=== PATIENT | female | born 1960 | race Caucasian/White ===

== ENCOUNTER 2020-02-07 12:54 | Outpatient (CLI) | payer OTHER, SELFPAY ==
--- NOTE | ~2020-02-07 | CT_ITS ---
EXAMINATION: CT lung screening DATE: 02/07/2020 13:16 INDICATION: Personal history of tobacco dependence, prior smoker with 30 pack year history TECHNIQUE: Computed tomography (CT) of the chest was performed without intravenous contrast. The dose -length product (DLP) was 169.70 mGy-cm. Automated exposure control and iterative reconstruction tech nique were employed. COMPARISON: None FINDINGS: No suspicious pulmonary nodules are identified. There is mild dependent atelectasis. The jovita ngs are free of focal airspace opacity. There is no pleural effusion or pneumothorax. No pathological ly enlarged thoracic lymph nodes are identified. The heart size is normal. Bilateral breast implants are noted. The visualized osseous structures are unremarkable. IMPRESSION: 1. Lung-RADS category 1: Negative. Continue annual screening with noncontrast low-dose chest CT in 12 months. Reviewed, dictated and finalized at location A. IMPRESSION: 1. Lung-RADS category 1: Negative. Continue annual screening with noncontrast l ow-dose chest CT in 12 months.
== END 2020-02-07 12:55 | disposition home or self-care (01) ==
PROVIDERS: PCP Nurse Practitioner Family; Visit Provider Nurse Practitioner Family
DX: Z12.2 Encounter for screening for malignant neoplasm of respiratory organs (principal); Z87.891 Personal history of nicotine dependence
CPT/HCPCS: G0297

== ENCOUNTER 2020-09-03 11:39 | Emergency (ER) | payer OTHER, SELFPAY ==
--- NOTE | ~2020-09-03 | XR_ITS ---
EXAMINATION: XR knee LT 3V DATE: 09/03/2020 12:30 INDICATION: Left knee pain. TECHNIQUE: 3 views of left knee were obtained. COMPARISON: None. FINDINGS: Bone alignment is normal. No fracture. There is mild tricompartmental osteoarthritis. No kn ee joint effusion. IMPRESSION: 1. Mild left knee osteoarthritis. Reviewed, dictated and finalized at location A. GER OFFICE
--- NOTE | ~2020-09-03 | CT_ITS ---
EXAMINATION: CT brain wo con DATE: 09/03/2020 12:27 INDICATION: Head injury. TECHNIQUE: Computed tomography (CT) of the head was performed without intravenous contrast. The mA wa s adjusted according to patient size. Iterative reconstruction technique was employed. The dose-lengt h product was 605.33 mGy-cm. COMPARISON: None FINDINGS: There is no intracranial hemorrhage, acute infarction, or abnormal intracranial mass lesion . The ventricles are normal in size. The orbits are normal. There is mild mucosal thickening in the p aranasal sinuses. The mastoid air cells are normal. IMPRESSION: 1. Normal brain. Reviewed, dictated and finalized at location A. K OF COURT IMPRESSION: 1. Normal brain.
[2020-09-03 11:42] VITALS: BP 141/73; PULSE 74; RESP 18; TEMP 35.6; O2SAT 100
--- NOTE | 2020-09-03 12:19 | PC.NURSE ---
Pt off floor to radiology.
--- NOTE | 2020-09-03 12:25 | ED.GENADULT ---
HPI - General Adult General Chief complaint: Wound/Laceration Stated complaint: LAC on head Time Seen by Provider: 09/03/20 11:58 Source: patient and family Mode of arrival: ambulatory Limitations: no limitations History of Present Illness HPI narrative: Patient is a 60-year-old female who presents to emergency department after falling and striking her face at 11:00 last night when taking her dog outside patient denies loss of consciousness or syncope patient sustained laceration to the right forehead just above the brow patient is unsure as to tetanus status patient notes mild headache and numbness to the right side of the temporal parietal scalp patient denies anticoagulation use presents in no distress with her family. Patient has not taken anything for her symptoms. Patient notes she also has some mild discomfort to the left knee with small abrasion Related Data Home Medications Medication Instructions Recorded Confirmed budesonide-formoterol [Symbicort] INHALATION 09/03/20 estradiol mg 09/03/20 sertraline mg 09/03/20 Allergies Allergy/AdvReac Type Severity Reaction Status Date / Time No Known Allergies Verified 09/03/20 12:24 Review of Systems Review of Systems: All systems reviewed & are unremarkable except as noted in HPI and below PMFSH Family History Family History (Updated 11/05/17 @ 06:58 by DOCTOR UNKNOWN) Mother Asthma Family history of chronic obstructive pulmonary disease Family history of congestive heart failure Grandparent Asthma Acute myocardial infarction Father Family history of lung cancer Sibling Family history of lung cancer, Onset Age: 44 Social History Social History Smoking status: Former smoker Smoking end date: 08/10/10 Alcohol intake: current Exam Narrative: Exam Narrative: GENERAL: Well-appearing, well-nourished, and in no acute distress. HEAD: Normocephalic, 2-1/2 cm linear laceration just above the right brow EYES: PERRLA and EOMI. ENT: Nares clear, no rhinorrhea or epistaxis. Mucous membranes moist. NECK: Supple. No adenopathy or masses. CHEST: Clear to auscultation. No respiratory distress. No wheezes rales or rhonchi HEART: Regular rate and rhythm. No murmur heard. Normal peripheral pulses. EXTREMITIES: Normal range of motion. No edema. Mild tenderness and abrasion to the medial aspect of the anterior left knee. No cervical spine tenderness to palpation SKIN: Warm, dry, no rash. NEURO: No focal deficits. Alert and oriented x3. Cranial nerves II through XII grossly intact. Neurovascularly intact. Normal speech and gait PSYCH: Normal mood and affect. Course Course Emergency Course: Patient in the room aware of case findings treatment plan diagnosis had closure of the wound reviewed imaging with the patient will be discharged home with outpatient follow-up tetanus was updated hemodynamically stable ABCs intact vital signs intact Vital Signs Vital signs: Vital Signs Temperature 96.1 F L 09/03/20 11:42 Pulse Rate 74 09/03/20 11:42 Respiratory Rate 18 09/03/20 11:42 Blood Pressure 141/73 H 09/03/20 11:42 Pulse Oximetry 100 09/03/20 11:42 Temperature 96.1 F L 09/03/20 11:42 Pulse Rate 74 09/03/20 11:42 Respiratory Rate 18 09/03/20 11:42 Blood Pressure 141/73 H 09/03/20 11:42 Pulse Oximetry 100 09/03/20 11:42 Procedures Laceration Laceration 1: Date: 09/03/20 Time: 13:49 Site: face Side (If applicable): right Size (cm): 2.5 Description: linear Depth: simple, single layer Local Anesthetic: lidocaine 1% Pre-repair: wound explored, irrigated and irrigated extensively ====== Skin Level ====== Skin layer closed with: nylon Number of sutures: 6 Technique: simple, interrupted ====== Subcutaneous Layer ====== ====== Muscle Layer ======
[2020-09-03] MEDS: TETANUS,DIPHTHERIA,AC PERTUSSIS ADULT (0.5 ML) BOOSTRIX IM (12:45)
[2020-09-03] MEDS: LIDOCAINE, EPINEPHRINE, TETRACAINE VISCOUS SOLN 3 ML TOPICAL (12:46)
[2020-09-03 14:15] VITALS: PULSE 74; RESP 16; TEMP 36.7; O2SAT 9
== END 2020-09-03 14:16 | disposition home or self-care (01) ==
PROVIDERS: Emergency Provider Emergency Medicine
DX: S01.81XA Laceration without foreign body of other part of head, initial encounter (principal); S89.92XA Unspecified injury of left lower leg, initial encounter; S09.90XA Unspecified injury of head, initial encounter; Z23 Encounter for immunization; Z87.891 Personal history of nicotine dependence; M17.12 Unilateral primary osteoarthritis, left knee; W01.198A Fall on same level from slipping, tripping and stumbling with subsequent striking against other object, initial encounter
CPT/HCPCS: 12011; 70450; 73562; 90471; 90715; 99284

== ENCOUNTER → 2020-10-12 12:48 | Outpatient (CLI) | payer OTHER, SELFPAY ==
--- NOTE | ~2020-10-12 | MM_ITS ---
EXAMINATION: MM scrn tom implant BI w colten HISTORY: Screening mammogram TECHNIQUE: Craniocaudal and mediolateral oblique 3-D tomosynthesis images with implant displacement a nd synthetic 2-D images were generated. Craniocaudal and mediolateral oblique views of the breasts wi thout implant displacement were obtained using full field digital mammography. CAD analysis was submi tted and interpreted. COMPARISON: Comparison to multiple prior studies sequentially, with oldest reviewed study dated . BREAST PARENCHYMAL COMPOSITION: There are scattered areas of fibroglandular density. FINDINGS: There are bilateral subpectoral silicone implants. There is no evidence of suspicious mass, calcification, or architectural distortion to suggest malignancy in either breast. There has been no suspicious interval change. IMPRESSION: 1. No mammographic evidence of malignancy. 2. Recommend routine screening mammography in one year. BI-RADS Category 1: Negative Reviewed, dictated and finalized at location A. E TURNER
== END ==
PROVIDERS: PCP Family Medicine; Visit Provider Obstetrics & Gynecology
DX: Z12.31 Encounter for screening mammogram for malignant neoplasm of breast (principal)
CPT/HCPCS: 77063; 77067

== ENCOUNTER 2021-02-25 15:13 | Outpatient (CLI) | payer OTHER, SELFPAY ==
--- NOTE | ~2021-02-25 | CT_ITS ---
EXAMINATION: CT lung screening DATE: 02/25/2021 15:28 INDICATION: Personal history of nicotine dependence, prior smoker with 30 pack year history TECHNIQUE: Computed tomography (CT) of the chest was performed without intravenous contrast. The dose -length product (DLP) was 329.67 mGy-cm. Automated exposure control and iterative reconstruction tech [employer] were employed. COMPARISON: 02/07/2020 FINDINGS: There is mild dependent atelectasis. No suspicious pulmonary nodules are identified. No pat hologically enlarged thoracic lymph nodes are identified. The heart size is normal. There is no pleur al effusion or pneumothorax. Bilateral breast implants are noted. The liver is diffusely low in atten uation when compared with the spleen, consistent with hepatic steatosis. IMPRESSION: 1. Lung-RADS category 1: Negative. Continue annual screening with noncontrast low-dose chest CT in 12 months. Reviewed, dictated and finalized at location B. IMPRESSION: 1. Lung-RADS category 1: Negative. Continue annual screening with noncontrast l ow-dose chest CT in 12 months.
== END 2021-02-25 15:14 | disposition home or self-care (01) ==
LOC: ANHIMG 15:15
PROVIDERS: PCP Family Medicine; Visit Provider Nurse Practitioner Family
DX: Z87.891 Personal history of nicotine dependence (principal)
CPT/HCPCS: 71271

== ENCOUNTER → 2021-10-08 02:15 | Outpatient (CLI) | payer OTHER, SELFPAY ==
[2021-10-08 12:26] LABS: SARS-CoV-2 RNA PCR Negative
== END ==
PROVIDERS: PCP Family Medicine; Visit Provider Internal Medicine Gastroenterology
DX: Z01.812 Encounter for preprocedural laboratory examination (principal); Z20.822 Contact with and (suspected) exposure to COVID-19
CPT/HCPCS: C9803; U0003; U0005

== ENCOUNTER 2021-10-11 02:30 | Day surgery (SDC) | payer OTHER, SELFPAY ==
[2021-09-27 14:18] VITALS: BMI 34.8
--- NOTE | 2021-10-10 13:34 | P.PNAN_ITS ---
Anes - Eval Pre Procedure Procedure: Operation Date: 10/11/21 09:00 Proposed Procedures p Screening Colonoscopy - Erwin Richardson MD Date/Time: 10/10/21 13:34 Pre Op Diagnosis: neoplasm screening Patient Data Age: 61 Gender: F Height: 1.61 m Weight: 90.7 kg Allergies Allergy/AdvReac Type Severity Reaction Status Date / Time No Known Allergies Verified 01/16/21 10:12 Home Medications Medication Instructions Recorded Confirmed Type estradiol 1 mg PO DAILY 09/03/20 09/27/21 History sertraline 100 mg PO DAILY 09/03/20 09/27/21 History fluticasone propionate 50 2 spray INTRANASAL DAILY 09/10/20 09/27/21 History mcg/actuation nasal spray,suspension fluticasone 250 mcg-salmeterol 50 1 inh INHALATION BID #60 ea 03/08/21 09/27/21 Rx mcg/dose blistr powdr for inhalation albuterol sulfate 90 mcg/actuation 1 - 2 puff INHALATION Q4-6H PRN 08/12/21 09/27/21 Rx aerosol inhaler #8.5 g levothyroxine 50 mcg tablet 75 mcg PO DAILY #90 tablet 10/07/21 Rx Patient hx anesthesia problems: none Family hx anesthesia problems: none Results Review: All pre-operative results and documents have been reviewed as part of the pre-operative evaluation. [facility], [facility] Past Medical History Medical History Anxiety Asthma Depression Surgical History Surgical History H/O breast augmentation H/O: hysterectomy History of tonsillectomy Hx of myomectomy Uterus subseptus Family History Family History Mother Asthma Family history of chronic obstructive pulmonary disease Family history of congestive heart failure Grandparent Asthma Acute myocardial infarction Father Family history of lung cancer Sibling Family history of lung cancer, Onset Age: 44 Social History Social History (Updated 02/06/21 @ 15:37 by Mansi Yarbrough [facility]) Smoking packs per day: 1 Smoking cigarettes per day: 20.0 Years smoked: 30 Smoking pack-years: 30.00 Smoking status: Former smoker Second hand tobacco smoke exposure: No Smoking end date: 08/10/10 Additional smoking assessment comments: quit 11 years ago Alcohol intake: current Drinks per week: 4 Alcohol use details: 1.75 L vodka weekly mixed with iced tea Substance use: current Substance use type: marijuana Other substance usage details: daily Spiritual care concerns: No Agree to blood products: Yes Exam Day of Procedure 10/10/21 13:34
--- NOTE | 2021-10-10 15:17 | PM.HPGS ---
History of Present Illness History of Present Illness Consent: Risks, benefits, and alternatives have been discussed and questions answered. Patient agrees to proceed with procedure. Chief complaint: neoplasm screening Narrative: Laura Diane is a 61 year old female referred for colon cancer screening. Her mother had polyps. Review of Systems Review of Systems: All systems reviewed & are unremarkable except as noted in HPI and below PMFSH Past Medical History Medical History Anxiety Asthma Depression Surgical History Surgical History H/O breast augmentation H/O: hysterectomy History of tonsillectomy Hx of myomectomy Uterus subseptus Family History Family History Mother Asthma Family history of chronic obstructive pulmonary disease Family history of congestive heart failure Grandparent Asthma Acute myocardial infarction Father Family history of lung cancer Sibling Family history of lung cancer, Onset Age: 44 Social History Social History Smoking packs per day: 1 Smoking cigarettes per day: 20.0 Years smoked: 30 Smoking pack-years: 30.00 Smoking status: Former smoker Second hand tobacco smoke exposure: No Smoking end date: 08/10/10 Additional smoking assessment comments: quit 11 years ago Alcohol intake: current Drinks per week: 4 Alcohol use details: 1.75 L vodka weekly mixed with iced tea Substance use: current Substance use type: marijuana Other substance usage details: daily Living arrangements: with family Spiritual care concerns: No Agree to blood products: Yes Meds Home Medications and Allergies Home Medications Medication Instructions Recorded Confirmed Type estradiol 1 mg PO DAILY 09/03/20 10/11/21 History sertraline 100 mg PO DAILY 09/03/20 10/11/21 History fluticasone propionate 50 2 spray INTRANASAL DAILY 09/10/20 10/11/21 History mcg/actuation nasal spray,suspension fluticasone 250 mcg-salmeterol 50 1 inh INHALATION BID #60 ea 03/08/21 10/11/21 Rx mcg/dose blistr powdr for inhalation albuterol sulfate 90 mcg/actuation 1 - 2 puff INHALATION Q4-6H PRN 08/12/21 10/11/21 Rx aerosol inhaler #8.5 g levothyroxine 75 mcg tablet 75 mcg PO DAILY #90 tablet 10/10/21 10/11/21 Rx Allergies Allergy/AdvReac Type Severity Reaction Status Date / Time No Known Allergies Verified 10/11/21 07:59 Exam Resp: Auscultation: clear to auscultation bilaterally Cardio: Rate: regular rate Rhythm: regular rhythm GI: GI Palp: Yes Soft to palpation and No Tenderness to palpation present (GI) Assessment and Plan Assessment and plan (1) Colon cancer screening: Code(s): Z12.11 - Encounter for screening for malignant neoplasm of colon Status: Acute Assessment and Plan: Colonoscopy with possible biopsy or polypectomy or cautery or injection of substances.
[2021-10-11 08:05] VITALS: BP 144/77; PULSE 64; RESP 18; TEMP 36.6; O2SAT 96
[2021-10-11] MEDS: LACTATED RINGERS 1,000 ML 150 ML IV CONT (08:15)
--- NOTE | 2021-10-11 08:41 | WPDANESEFPP ---
Anes - Eval Final PreProcedure Day of Procedure 10/11/21 08:41 Patient weight: obese Heart: regular rate and rhythm Lungs: clear to auscultation Airway: Mallampati scale class II Neurological: alert and oriented Last oral intake: >/= 8 hours ASA classification: III Emergent: no Anesthetic plan: proceed Anesthesia type and monitoring: general GIVS and standard monitoring Results Review: All pre-operative results and documents have been reviewed as part of the pre-operative evaluation. Informed Consent: The patient's anesthetic plan and its attendant risks and benefits were discussed with the patient/family/POA. Questions were solicited and answers provided to the satisfaction of the patient/family/POA.
[2021-10-11] MEDS: SIMETHICONE ORAL SUSPENSION 20 MG/0.3 ML 30 ML BOTTLE 0.6 ML IRRIGATION (08:55)
[2021-10-11 09:07] VITALS: BP 127/74; PULSE 70; RESP 21; O2SAT 97
[2021-10-11 09:17] VITALS: BP 141/82; PULSE 67; RESP 22; O2SAT 97
[2021-10-11 09:27] VITALS: BP 150/96; PULSE 59; RESP 23; O2SAT 96
== END 2021-10-11 09:34 | disposition home or self-care (01) ==
PROVIDERS: PCP Family Medicine; Visit Provider Internal Medicine Gastroenterology
PROC: 0DJD8ZZ Inspection of Lower Intestinal Tract, Via Natural or Artificial Opening Endoscopic (ICD-10-PCS; CPT 45378; principal; 2021-10-11 09:00)
DX: Z12.11 Encounter for screening for malignant neoplasm of colon (principal); D12.4 Benign neoplasm of descending colon; K57.30 Diverticulosis of large intestine without perforation or abscess without bleeding; K64.8 Other hemorrhoids; J45.909 Unspecified asthma, uncomplicated; F41.8 Other specified anxiety disorders; Z79.51 Long term (current) use of inhaled steroids; Z87.891 Personal history of nicotine dependence; F12.90 Cannabis use, unspecified, uncomplicated
CPT/HCPCS: 45385; 88305; C9803; J2704; J7120; U0003; U0005

== ENCOUNTER 2022-03-03 09:54 | Outpatient (CLI) | payer OTHER, SELFPAY ==
--- NOTE | ~2022-03-03 | CT_ITS ---
EXAMINATION: CT lung screening DATE: 03/03/2022 10:30 INDICATION: Former smoker. Personal history of tobacco dependence. TECHNIQUE: Computed tomography (CT) of the chest was performed without intravenous contrast. The dose -length product was 228.07 mGy-cm. Automated exposure control and iterative reconstruction technique were employed. COMPARISON: CT dated 02/25/2021 FINDINGS: Heart size is normal. No significant pleural or pericardial effusion. No thoracic lymphaden opathy. No endobronchial lesions. Breast implants are present. No pneumothorax. There is left apical pleural thickening/scarring. There are a few scattered 1-2 mm nodules, likely benign. No acute osseou s abnormality. IMPRESSION: 1. Lung-RADS category 2: Benign appearance or behavior. Continue annual screening with noncontrast lo w-dose chest CT in 12 months. Reviewed, dictated and finalized at location A. IMPRESSION: 1. Lung-RADS category 2: Benign appearance or behavior. Continue annual screeni ng with noncontrast low-dose chest CT in 12 months.
== END 2022-03-03 09:55 | disposition home or self-care (01) ==
PROVIDERS: PCP Family Medicine; Visit Provider Nurse Practitioner Family
DX: Z12.2 Encounter for screening for malignant neoplasm of respiratory organs (principal); Z87.891 Personal history of nicotine dependence
CPT/HCPCS: 71271

== ENCOUNTER 2022-06-10 12:03 | Outpatient (CLI) | payer OTHER, SELFPAY ==
[2022-06-10 19:27] LABS: Basophils Percent Auto 0.2 % (0.2-1.2); Eosinophils Absolute Auto 0.1 K/mm3 (0-0.3); Eosinophils Percent Auto 1.9 % (0-4.4); Hematocrit 40.5 % (37.0-47.0); Hemoglobin 13.8 g/dL (12.0-15.0); Immature Granulocyte Absolute 0.02 K/mm3 (0.00-0.031); Immature Granulocyte Percent A 0.4 % (0-0.5); Lymphocytes Absolute Auto 1.27 K/mm3 (0.9-3.2); Lymphocytes Percent Auto 23.6 % (18.3-44.2); Mean Corpuscular HGB Conc 34.1 g/dl (32-36); Mean Corpuscular Hemoglobin 34.8 pg (26-34); Mean Platelet Volume 9.8 fl (7.4-10.4); Monocytes Absolute Auto 0.2 K/mm3 (0.1-0.6); Monocytes Percent Auto 4.3 % (2.6-8.5); Neutrophils Absolute Auto 3.8 K/mm3 (1.3-6.7); Neutrophils Percent Auto 69.6 % (45.5-73.1); Platelet Count Result 251 k/mm3 (150-375); Red Blood Count 3.97 M/mm3 (4.2-5.4); Red Cell Distribution Width 13.2 % (11.5-14.5); White Blood Count 5.4 K/mm3 (4.5-10.0)
[2022-06-10 19:56] LABS: Alanine Aminotransferase 37 U/L (6-35); Albumin Level 4.5 g/dL (3.5-5.1); Alkaline Phosphatase 88 U/L (38-126); Anion Gap 9 mmol/L (8-16); Aspartate Amino Transferase 44 U/L (14-36); Bilirubin,Total 0.7 mg/dL (0.2-1.3); Blood Urea Nitrogen 14 mg/dL (7-17); Calcium 9.1 mg/dL (8.4-10.2); Carbon Dioxide 27 mmol/L (22-30); Chloride 100 mmol/L (98-107); Cholesterol 263 mg/dL (0-200); Estimated Glomerular Filt Rate > 60; Glucose 114 mg/dL (65-110); HDL Direct 81 mg/dL; Potassium 4.2 mmol/L (3.4-5.0); Sodium 136 mmol/L (137-145); Triglycerides 294 mg/dL (<150)
[2022-06-10 20:04] LABS: Vitamin D 25 Hydroxy 34.6 ng/mL
[2022-06-10 20:08] LABS: LDL Cholesterol Direct 134 mg/dL
== END 2022-06-10 12:04 | disposition home or self-care (01) ==
LOC: ANHBWCLAB 12:05
PROVIDERS: PCP Family Medicine; Visit Provider Family Medicine
DX: Z00.00 Encounter for general adult medical examination without abnormal findings (principal); E78.5 Hyperlipidemia, unspecified; E03.9 Hypothyroidism, unspecified; F32.9 Major depressive disorder, single episode, unspecified; R94.5 Abnormal results of liver function studies
CPT/HCPCS: 36415; 80053; 80061; 82306; 84443; 85025

== ENCOUNTER 2022-07-19 17:35 | Inpatient (IN) | payer OTHER, SELFPAY ==
[2022-07-19] VITALS (36 sets, daily range): BP systolic 122–175; BP diastolic 57–95; PULSE 90–118; RESP 18–97; TEMP 36.8–39.1; O2SAT 85–97
--- NOTE | ~2022-07-19 | XR_ITS ---
EXAMINATION: XR chest 2V Exam Date/Time: 07/19/2022 18:24 TRAFFIC POLICE OFFICER HISTORY: SOB, WHEEZING, COUGHING, FEVER SINCE YESTERDAY Comparison: 10/30/2010. RESULT: Lines, tubes, and devices: None. Lungs and pleura: Reticular and reticulonodular opacities, with cuffing. Cardiomediastinal silhouette: Stable. Other: No acute osseous or upper abdominal finding. IMPRESSION: Pulmonary opacities may represent bronchiolitis, as can be seen with atypical infection, asthma, aspi ration, and small airways disease. Reviewed, dictated and finalized at location K. FIC POLICE OFFICER IMPRESSION: Pulmonary opacities may represent bronchiolitis, as can be seen with atypical i nfection, asthma, aspiration, and small airways disease.
--- NOTE | ~2022-07-19 | CT_ITS ---
EXAMINATION: CTA chest PE protocol DATE: 07/19/2022 20:00 INDICATION: sob, hypoxia, +dimer TECHNIQUE: Computed tomography angiography (CTA) of the chest was performed with 100 mL Omnipaque-350 intravenous contrast timed to evaluate the pulmonary arteries. Coronal maximum intensity projection 3D-reconstructions were created by the technologist. The dose-length product (DLP) was 793.47 mGy-cm. Automated exposure control and iterative reconstruction technique were employed. COMPARISON: X-ray chest, same date CT lung screening 03/03/2022. FINDINGS: Lung parenchyma and airways: Minimal dependent atelectasis,, otherwise clear. Pleura: Unremarkable. Thoracic inlet, axillae and chest wall: Unremarkable. Thoracic aorta: Normal. Mediastinum: Normal. Heart and pericardium: Normal. Coronary artery calcifications: . Upper abdomen: Diffuse fatty liver infiltration. Bones: No acute osseous finding. Pulmonary arteries: Study quality: Adequate. No pulmonary emboli detected. IMPRESSION: No CT evidence of acute pulmonary embolus. No significant pulmonary findings, the bronchiolitic montano e is seen in the prior chest radiograph were likely artifactual. Steatosis. Reviewed, dictated and finalized at location K. ING AND COOLING SYSTEMS ENGINEER IMPRESSION: No CT evidence of acute pulmonary embolus. No significant pulmonary findings, t he bronchiolitic change is seen in the prior chest radiograph were likely artif actual. Steatosis.
--- NOTE | ~2022-07-19 | US_ITS ---
EXAMINATION: US venous doppler [facility] DATE: 07/22/2022 16:47 INDICATION: Shortness of breath TECHNIQUE: Gee scale images without and with compression and Doppler images of the bilateral lower e xtremity veins were obtained. COMPARISON: None FINDINGS: The right common femoral vein, profunda femoral vein, femoral vein, popliteal vein, peroneal trunk, p osterior tibial veins, and greater saphenous vein are patent. The left common femoral vein, profunda femoral vein, femoral vein, popliteal vein, peroneal trunk, po sterior tibial veins, and greater saphenous vein are patent. IMPRESSION: 1. Patent bilateral lower extremity veins. No evidence of deep venous thrombosis. Reviewed, dictated and finalized at location A. ONS ADVISOR IMPRESSION: 1. Patent bilateral lower extremity veins. No evidence of deep venous thrombosi s.
--- NOTE | 2022-07-19 18:22 | ECG_ITS ---
Measurements Intervals [place] Rate: 105 P: 23 NE: 120 QRS: 32 QRSD: 88 T: 71 QT: 307 QTc: 406 Interpretive Statements SINUS TACHYCARDIA NONSPECIFIC T-WAVE ABNORMALITY ABNORMAL RHYTHM ECG NO PREVIOUS ECG AVAILABLE FOR COMPARISON Electronically Signed On 07-20-2022 8:31:59 SHALE PLANER OPERATOR by Negro Lawson M.D.
--- NOTE | 2022-07-19 18:22 | ED.SOB ---
HPI - SOB/Dyspnea General Chief Complaint: Shortness of Breath/Dyspnea Stated Complaint: fever, shortness of breath Time Seen by Provider: 07/19/22 18:09 History of Present Illness HPI Narrative: Patient is a 62-year-old female with a history of asthma, depression, hypothyroidism presenting with shortness of breath. Patient states that starting yesterday she developed a low-grade fever as well as a cough. States that overnight she became increasingly short of breath. States that she has a rescue inhaler which she has used multiple times today with minimal relief. States that her chest feels tight. She denies any chest pain, palpitations, lightheadedness. No headache, abdominal pain, nausea or vomiting, diarrhea, dysuria, leg swelling. Patient is not vaccinated for influenza or COVID-19. Related Data Home Medications Medication Instructions Recorded Confirmed estradiol 1 mg tablet 1 mg PO DAILY 09/03/20 07/20/22 sertraline 100 mg tablet 100 mg PO DAILY 09/03/20 07/20/22 fluticasone propionate 50 2 spray intranasal DAILY 09/10/20 07/20/22 mcg/actuation nasal spray,suspension Allergies Allergy/AdvReac Type Severity Reaction Status Date / Time No Known Allergies Allergy Unverified 06/04/22 10:14 Review of Systems Review of Systems: All systems reviewed & are unremarkable except as noted in HPI and below PMFSH Past Medical History Medical History (Updated 07/20/22 @ 14:29 by Quiana Prasad MD) Anxiety Asthma Depression Hepatic steatosis Hypothyroid MIKEY (obstructive sleep apnea) Surgical History Surgical History H/O breast augmentation H/O: hysterectomy History of tonsillectomy Hx of myomectomy Uterus subseptus Family History Family History Mother Asthma Family history of chronic obstructive pulmonary disease Family history of congestive heart failure Grandparent Asthma Acute myocardial infarction Father Family history of lung cancer Sibling Family history of lung cancer, Onset Age: 44 Social History Social History (Updated 07/20/22 @ 13:05 by Chivo Gould MD) Social History: She lives at home with her and her 2 adopted sons. She has 3 cats and 2 dogs. One of the dogs does sleep with her. She quit tobacco in 2010. She does use marijuana edibles 2-3 times per week. No history of IV drug use. She drinks vodka almost daily having 2-3 drinks per day. She is a full code. She nominates her to be the individual who would make medical decisions for her if she is unable. Smoking packs per day: 1 Smoking cigarettes per day: 20.0 Years smoked: 30 Smoking pack-years: 30.00 Smoking status: Former smoker Second hand tobacco smoke exposure: No Smoking end date: 08/10/10 Additional smoking assessment comments: quit 11 years ago Alcohol intake: current Drinks per week: 4 Alcohol use details: 1.75 L vodka weekly mixed with iced tea Substance use: current Substance use type: marijuana Other substance usage details: daily Gender identity (if verbalized by the patient): Female Spiritual care concerns: No Agree to blood products: Yes Exam Narrative: GENERAL: Nontoxic, pleasant, cooperative HEAD: Normocephalic, atraumatic. EYES: PERRLA and EOMI. ENT: Nares clear, no rhinorrhea or epistaxis. Mucous membranes moist. NECK: Supple. CHEST: Wheezing bilaterally with increased work of breathing and tachypnea HEART: Tachycardic, regular rhythm. No murmur heard. Normal peripheral pulses. ABDOMEN: Soft, nontender, nondistended, normal active bowel sounds. EXTREMITIES: Normal range of motion. No edema. SKIN: Warm, dry, no rash. NEURO: No focal deficits. Alert and oriented x3. PSYCH: Normal mood and affect. Course Vital Signs Vital signs: Vital Signs Temperature 100.5 F H 07/19/22 17:38 Pulse Rate
[2022-07-19 18:42] LABS: Basophils Percent Auto 0.1 % (0.2-1.2); Eosinophils Percent Auto 0.1 % (0-4.4); Hematocrit 36.1 % (37.0-47.0); Immature Granulocyte Absolute 0.03 K/mm3 (0.00-0.031); Immature Granulocyte Percent A 0.4 % (0-0.5); Lymphocytes Absolute Auto 0.22 K/mm3 (0.9-3.2); Mean Corpuscular Hemoglobin 35.3 pg (26-34); Mean Corpuscular Volume 98.1 fl (80-100); Mean Platelet Volume 9.6 fl (7.4-10.4); Monocytes Absolute Auto 0.3 K/mm3 (0.1-0.6); Monocytes Percent Auto 3.8 % (2.6-8.5); Neutrophils Absolute Auto 6.9 K/mm3 (1.3-6.7); Neutrophils Percent Auto 92.6 % (45.5-73.1); Platelet Count Result 190 k/mm3 (150-375); Red Blood Count 3.68 M/mm3 (4.2-5.4); Red Cell Distribution Width 13.2 % (11.5-14.5); White Blood Count 7.4 K/mm3 (4.5-10.0)
[2022-07-19] MEDS: ALBUTEROL SULFATE NEB 2.5 MG/3 ML INH 10 MG INHALATION (18:46)
[2022-07-19] MEDS: IPRATROPIUM BR 0.02% INH SOLN 0.5 MG/2.5 ML VIAL INHALATION (18:46)
[2022-07-19] MEDS: methylPREDNISolone SOD SUCC 125 MG VIAL IV PUSH (18:47)
[2022-07-19 18:52] LABS: Platelet Estimate Adequate (Adequate); Schistocytes None Seen (NORMAL); Stomatocytes 1+ (NORMAL); Tear Drop Cells 1+ (NORMAL)
[2022-07-19 18:55] LABS: Alanine Aminotransferase 39 U/L (6-35); Albumin Level 4.5 g/dL (3.5-5.1); Alkaline Phosphatase 83 U/L (38-126); Anion Gap 8 mmol/L (8-16); Aspartate Amino Transferase 32 U/L (14-36); Bilirubin,Total 0.7 mg/dL (0.2-1.3); Blood Urea Nitrogen 10 mg/dL (7-17); Calcium 9.2 mg/dL (8.4-10.2); Carbon Dioxide 28 mmol/L (22-30); Chloride 99 mmol/L (98-107); Estimated CRCL calculation 114 ml/min; Estimated Glomerular Filt Rate > 60; Glucose 133 mg/dL (65-110); Potassium 3.9 mmol/L (3.4-5.0); Sodium 135 mmol/L (137-145)
[2022-07-19 18:59] LABS: D Dimer 0.65 ug/mL (<0.48)
[2022-07-19 19:20] LABS: Influenza A QL RT-PCR Positive (Negative); Influenza B QL RT-PCR Negative (Negative); RSV RNA, RT-PCR Negative (Negative); SARS-CoV-2 RNA PCR Negative
[2022-07-19] MEDS: OSELTAMIVIR PHOSPHATE 75 MG CAPSULE PO (21:49)
[2022-07-20] VITALS (29 sets, daily range): BP systolic 114–157; BP diastolic 54–130; PULSE 73–117; RESP 18–22; TEMP 36.1–37.2; O2SAT 91–97; BMI 36.3
[2022-07-20] MEDS: ALBUTEROL SULFATE NEB 2.5 MG/3 ML INH 5 MG INHALATION ×4 (02:06→21:13)
[2022-07-20] MEDS: IPRATROPIUM BR 0.02% INH SOLN 0.5 MG/2.5 ML VIAL INHALATION ×4 (02:07→21:13)
[2022-07-20] MEDS: OSELTAMIVIR PHOSPHATE 75 MG CAPSULE PO ×2 (09:47→20:45)
--- NOTE | 2022-07-20 12:51 | PM.IMHP ---
H&P: HPI History of Present Illness Date/Time: 07/20/22 12:51 Chief Complaint: Shortness of breath Narrative: 62yo female with asthma and MIKEY here for shortness of breath. Patient has a history of tobacco use but quit in 2010. She does not carry a diagnosis of COPD or emphysema. She was recently diagnosed with sleep apnea and started CPAP about 2 weeks ago which she has been compliant with. She sees Dr. Chau as her home health outreach coordinator. She is on Advair b.i.d. and rarely uses her albuterol rescue inhaler. She was in her normal state health until the evening prior to admission when she developed cough with wheezing and shortness of breath. She slept poorly that night and was unable to use her CPAP. She used the rescue inhaler with benefit. She does admit to feeling anxious and panicky. On the day of admission she did have some minor improvement but her condition worsened again. Her cough was mildly productive. She was developing fevers at home and was noted to be 102.3 on admission here. She is having chills at home. No chest pain or shortness of breath. No odynophagia or dysphagia. She has urinary frequency but she feels is related to her drinking excessive amounts of free water. She is also complaining of headache. She has not been vaccinated against influenza or COVID. Because of the worsening symptoms, she presented emergency room for evaluation. In the Emergency room noted be febrile tachycardic. She is tachypneic as well as hypoxic. She was 91% on room air but dropped to 85%. Probably related to V/Q mismatch after breathing treatment. She was placed on 3 L nasal cannula. Labwork was unrevealing the exception of the elevated D-dimer. She was Influenza A positive. Chest x-ray is consistent with bronchiolitis. CT of the chest showed no evidence of acute pulmonary embolism. There was no significant pulmonary findings byt CT and was felt that the bronchiolitis seen on CXR was artifact. Patient was started on Tamiflu. She was given nebulizer treatments. She was admitted for further care. She feels better today. Review of Systems Review of Systems: All systems reviewed & are unremarkable except as noted in HPI and below [facility] Past Medical History Medical History (Updated 07/20/22 @ 13:09 by Chivo Gould MD) Anxiety Asthma Depression Hepatic steatosis Hypothyroid MIKEY (obstructive sleep apnea) Surgical History Surgical History H/O breast augmentation H/O: hysterectomy History of tonsillectomy Hx of myomectomy Uterus subseptus Family History Family History Mother Asthma Family history of chronic obstructive pulmonary disease Family history of congestive heart failure Grandparent Asthma Acute myocardial infarction Father Family history of lung cancer Sibling Family history of lung cancer, Onset Age: 44 Social History Social History (Updated 07/20/22 @ 13:05 by Chivo Gould MD) Social History: She lives at home with her and her 2 adopted sons. She has 3 cats and 2 dogs. One of the dogs does sleep with her. She quit tobacco in 2010. She does use marijuana edibles 2-3 times per week. No history of IV drug use. She drinks vodka almost daily having 2-3 drinks per day. She is a full code. She nominates her to be the individual who would make medical decisions for her if she is unable. Smoking packs per day: 1 Smoking cigarettes per day: 20.0 Years smoked: 30 Smoking pack-years: 30.00 Smoking status: Former smoker Second hand tobacco smoke exposure: No Smoking end date: 08/10/10 Additional smoking assessment comments: quit 11 years ago Alcohol intake: current Drinks per week: 4 Alcohol use details: 1.75 L vodka weekly mixed with iced tea Substance use: current Substance use type: marijuana Other substance usage d
[2022-07-20] MEDS: SERTRALINE HCL 50 MG TABLET 100 MG PO (12:57)
[2022-07-20] MEDS: FOLIC ACID 1 MG TABLET PO (13:34)
[2022-07-20] MEDS: THIAMINE HCL 100 MG TABLET PO (13:34)
[2022-07-20] MEDS: ENOXAPARIN 40 MG/0.4 ML SYRINGE SUB-Q (13:35)
--- NOTE | 2022-07-20 16:15 | ADMGEN ---
This patient, Laura Diane, was admitted to Medical Room 343-01. Patient/family oriented to hospital policies and general routines including ID bracelet, bed and alarms, visiting hours, pain management, procedures, bathroom and other care routines, personal items, smoking policy, room service/diet, and visiting hours. Information on how to activate the Rapid Response Team has been discussed. Patient/Family are encouraged to report perceived risks to care and to ask questions if they do not understand what they are told or what they should do.
[2022-07-20] MEDS: FLUTICASONE/SALMETEROL 115-21 MCG INHALER 1 PUFF 2 PUFF INHALATION (21:19)
[2022-07-20 23:53] LABS: Glucose Point of Care 124 mg/dl (65-105)
[2022-07-21] VITALS (17 sets, daily range): BP systolic 132–134; BP diastolic 70–78; PULSE 61–88; RESP 18–20; TEMP 36.6–37.1; O2SAT 95–98
[2022-07-21] MEDS: IPRATROPIUM BR 0.02% INH SOLN 0.5 MG/2.5 ML VIAL INHALATION ×4 (03:15→19:58)
[2022-07-21] MEDS: ALBUTEROL SULFATE NEB 2.5 MG/3 ML INH 5 MG INHALATION ×4 (03:15→19:58)
[2022-07-21] MEDS: LEVOTHYROXINE SODIUM 75 MCG TABLET BY MOUTH (05:45)
[2022-07-21 05:56] LABS: Glucose Point of Care 127 mg/dl (65-105)
[2022-07-21 06:10] LABS: Alanine Aminotransferase 47 U/L (6-35); Albumin Level 4.4 g/dL (3.5-5.1); Alkaline Phosphatase 70 U/L (38-126); Anion Gap 8 mmol/L (8-16); Aspartate Amino Transferase 40 U/L (14-36); Bilirubin,Total 0.4 mg/dL (0.2-1.3); Blood Urea Nitrogen 11 mg/dL (7-17); Calcium 8.9 mg/dL (8.4-10.2); Carbon Dioxide 29 mmol/L (22-30); Chloride 102 mmol/L (98-107); Estimated CRCL calculation 95 ml/min; Estimated Glomerular Filt Rate > 60; Glucose 113 mg/dL (65-110); Potassium 3.4 mmol/L (3.4-5.0); Sodium 139 mmol/L (137-145)
[2022-07-21 07:30] LABS: Hepatitis C Virus Antibody Negative (Negative)
[2022-07-21] MEDS: ENOXAPARIN 40 MG/0.4 ML SYRINGE SUB-Q (08:38)
[2022-07-21] MEDS: FLUTICASONE PROPIONATE 0.05% NA SPR 16 GM BTL (*BKC) 2 SPRAY NASAL (08:38)
[2022-07-21] MEDS: SERTRALINE HCL 50 MG TABLET 100 MG PO (08:39)
[2022-07-21] MEDS: FOLIC ACID 1 MG TABLET PO (08:39)
[2022-07-21] MEDS: CHOLECALCIFEROL 1,000 UNITS TABLET 5000 UNITS PO (08:39)
[2022-07-21] MEDS: THIAMINE HCL 100 MG TABLET PO (08:39)
[2022-07-21] MEDS: FLUTICASONE/SALMETEROL 115-21 MCG INHALER 1 PUFF 2 PUFF INHALATION ×2 (10:31→19:58)
[2022-07-21] MEDS: OSELTAMIVIR PHOSPHATE 75 MG CAPSULE PO ×2 (11:06→20:49)
[2022-07-21 12:40] LABS: Glucose Point of Care 116 mg/dl (65-105)
[2022-07-21 17:29] LABS: Glucose Point of Care 107 mg/dl (65-105)
--- NOTE | 2022-07-21 18:13 | PM.IMPN ---
Progress Note: A&P Assessment and Plan (1) Sepsis: Code(s): A41.9 - Sepsis, unspecified organism Status: Acute (2) Acute respiratory failure with hypoxia: Code(s): J96.01 - Acute respiratory failure with hypoxia Status: Acute (3) Influenza A: Code(s): J10.1 - Influenza due to other identified influenza virus with other respiratory manifestations Status: Acute (4) Asthma: Code(s): J45.909 - Unspecified asthma, uncomplicated Status: Acute (5) Anxiety: Code(s): F41.9 - Anxiety disorder, unspecified Status: Acute (6) MIKEY (obstructive sleep apnea): Code(s): G47.33 - Obstructive sleep apnea (adult) (pediatric) Status: Acute (7) Alcohol abuse: Code(s): F10.10 - Alcohol abuse, uncomplicated Status: Acute (8) Hepatic steatosis: Code(s): K76.0 - Fatty (change of) liver, not elsewhere classified Status: Acute Plan Patient presents to the emergency room with shortness of breath. She is found to be hypoxic with increased work of breathing and tachypneic. She met criteria for sepsis with fever, tachycardia, tachypnea and hypoxia. She was found to be positive for influenza A. Continue nebulizer treatments. Continue Tamiflu. Continue her Advair. Her levothyroxine and sertraline were also restarted. We resumed CPAP. No evidence of alcohol withdrawal. Continue Thiamine and folate. Contineu to monitor by CIWA protocol. CTA of the chest shows hepatic steatosis. She has mild elevation of her ALT mostly probably related to hepatic steatosis. Hepatitis C Ab negative. Tele noted. Continue to monitor. Wean O2 as toerlated. Home when she is on room air. Lovenox for DVT prophylaxis. Full Code Subjective Date/time seen: 07/21/22 18:13 Interval history: 62yo female with asthma here for shortness of breath and fever and found to have influenza A. Shortness of breath is better. Cough is not productive green sputum. No further fevers or chills. No chest pain. Exam Narrative: AF 97.9 134/70 77 18 95% 2L Gen - NARD Chest - Inspiratory expiratory wheeze. CV - RRR S1/S2. Tele showing 1 brief episode of ATach Abd - Soft, NT/ND, Positive BS Ext - No pedal edema Psych - Nml mood and affect Skin - Warm and dry Objective Data Vital Signs Vital Signs: Vital Signs - 24 hr 07/20/22 21:10 07/20/22 21:10 07/20/22 22:00 Temperature 98.9 F Pulse Rate 90 73 Respiratory Rate 22 H 18 Blood Pressure 137/70 Pulse Oximetry 95 93 Oxygen Delivery Nasal Cannula Oxygen Flow Rate 2 07/20/22 20:00 07/21/22 00:00 07/21/22 04:00 Temperature Pulse Rate 78 78 66 Respiratory Rate Blood Pressure Pulse Oximetry Oxygen Delivery Oxygen Flow Rate 07/21/22 06:00 07/21/22 03:15 07/21/22 10:32 Temperature 98.7 F Pulse Rate 67 68 88 Respiratory Rate 20 20 18 Blood Pressure 132/78 Pulse Oximetry 98 Oxygen Delivery Oxygen Flow Rate 07/21/22 10:32 07/21/22 10:43 07/21/22 14:00 Temperature 97.9 F Pulse Rate 88 85 67 Respiratory Rate 18 18 Blood Pressure 134/70 Pulse Oximetry 97 95 Oxygen Delivery Nasal Cannula Oxygen Flow Rate 2 07/21/22 09:30 07/21/22 08:00 07/21/22 15:32 Temperature Pulse Rate 67 61 73 Respiratory Rate 18 18 Blood Pressure Pulse Oximetry 95 Oxygen Delivery Nasal Cannula Oxygen Flow Rate 2 07/21/22 15:45 Temperature Pulse Rate 77 Respiratory Rate 18 Blood Pressure Pulse Oximetry Oxygen Delivery Oxygen Flow Rate Intake/Output Intake/Output: Intake & Output 07/18/22 07/19/22 07/20/22 07/21/22 23:59 23:59 23:59 23:59 Intake Total 265 157 8990 Output Total 0 Balance 085 428 0489 Meds/Results Medications: Active Medications Generic Name Dose Route Start Last Admin Trade Name Freq PRN Reason Stop Dose Admin Albuterol 5 mg 07/20/22 02:00 07/21/22 15:35 Albuterol Sulfate Neb 2.5 Mg/3 Ml Inh INH
--- NOTE | 2022-07-21 20:19 | PCRCNOTE ---
pt refusing use of CPAP on 07/21. pt stating that it was too uncomfortable for her the previous night. RT informed pt to call if she changed her mind.
[2022-07-22] VITALS (14 sets, daily range): BP systolic 108–135; BP diastolic 65–75; PULSE 62–91; RESP 18–20; TEMP 36.7; O2SAT 92–96
[2022-07-22] MEDS: ALBUTEROL SULFATE NEB 2.5 MG/3 ML INH 5 MG INHALATION ×3 (01:54→13:57)
[2022-07-22] MEDS: IPRATROPIUM BR 0.02% INH SOLN 0.5 MG/2.5 ML VIAL INHALATION ×3 (01:54→13:57)
[2022-07-22 02:38] LABS: Glucose Point of Care 114 mg/dl (65-105)
[2022-07-22] MEDS: LEVOTHYROXINE SODIUM 75 MCG TABLET BY MOUTH (05:35)
[2022-07-22 06:27] LABS: Glucose Point of Care 117 mg/dl (65-105)
[2022-07-22] MEDS: FLUTICASONE/SALMETEROL 115-21 MCG INHALER 1 PUFF 2 PUFF INHALATION (08:33)
[2022-07-22] MEDS: FLUTICASONE PROPIONATE 0.05% NA SPR 16 GM BTL (*BKC) 2 SPRAY NASAL (09:35)
[2022-07-22] MEDS: THIAMINE HCL 100 MG TABLET PO (09:36)
[2022-07-22] MEDS: ENOXAPARIN 40 MG/0.4 ML SYRINGE SUB-Q (09:36)
[2022-07-22] MEDS: FOLIC ACID 1 MG TABLET PO (09:36)
[2022-07-22] MEDS: SERTRALINE HCL 50 MG TABLET 100 MG PO (09:36)
[2022-07-22] MEDS: OSELTAMIVIR PHOSPHATE 75 MG CAPSULE PO (09:36)
[2022-07-22] MEDS: CHOLECALCIFEROL 1,000 UNITS TABLET 5000 UNITS PO (09:36)
--- NOTE | 2022-07-22 12:05 | PC.NURSE ---
Patient returned to unit
[2022-07-22 12:20] LABS: Glucose Point of Care 135 mg/dl (65-105)
--- NOTE | 2022-07-22 12:36 | PM.DS ---
DS: Admitting Diagnosis Discharge Date 07/22/22 Admitting Diagnosis Shortness of breath DS: Discharge Diagnosis Discharge Diagnosis (1) Sepsis: Code(s): A41.9 - Sepsis, unspecified organism Status: Acute (2) Acute respiratory failure with hypoxia: Code(s): J96.01 - Acute respiratory failure with hypoxia Status: Acute (3) Influenza A: Code(s): J10.1 - Influenza due to other identified influenza virus with other respiratory manifestations Status: Acute (4) Asthma: Code(s): J45.909 - Unspecified asthma, uncomplicated Status: Acute (5) Anxiety: Code(s): F41.9 - Anxiety disorder, unspecified Status: Acute (6) MIKEY (obstructive sleep apnea): Code(s): G47.33 - Obstructive sleep apnea (adult) (pediatric) Status: Acute (7) Alcohol abuse: Code(s): F10.10 - Alcohol abuse, uncomplicated Status: Acute (8) Hepatic steatosis: Code(s): K76.0 - Fatty (change of) liver, not elsewhere classified Status: Acute DS: Summary Hospital Course Reason for hospitalization: 62yo female with asthma here for shortness of breath and fever and found to have influenza A. Please see H&P for details Hospital Course: Patient presented to the emergency room with shortness of breath. She was found to be hypoxic with increased work of breathing and tachypneic. She met criteria for sepsis with fever, tachycardia, tachypnea and hypoxia. She was found to be positive for influenza A. DDimer was positive and CTA of the chest was performed that was negative for PE; lower extremity venous doppler was negative for DVT. She was treated with nebulizer treatments and started on Tamiflu. We resumed CPAP as auto-PAP here. She was monitored using CIWA protocol but no evidence of alcohol withdrawal. We started thiamine and folate. She has mild elevation of her ALT mostly probably related to hepatic steatosis. Hepatitis C Ab negative. CTA of the chest shows hepatic steatosis. She was on Tele which showed brief episodes of ATach/MAT. She did well. We were able to wean O2 to room air. She overall did well and was able to be discharged home on 07/21/22. Status at Discharge Cognitive/behavioral status at discharge: Stable Time Spent with Patient Time attestation: Total time spent providing and/or coordinating discharge services: 34 minutes Time spent: Greater than 30 minutes Exam Narrative: AF 98.1 108/65 72 18 94% ra Gen - NARD Chest - few scattered expiratory wheeze CV - RRR S1/S2. Tele showing 2 brief episode of ATach Abd - Soft, NT/ND, Positive BS Ext - trace pedal edema Psych - Nml mood and affect Skin - Warm and dry DS: Data Data Completed and Pending Labs on day of discharge: Labs from last 24 hours 07/22/22 07/22/22 07/22/22 12:07 05:45 00:00 POC Capillary Glucose 135 H 117 H 114 H 07/21/22 07/21/22 17:25 12:33 POC Capillary Glucose 107 H 116 H Discharge Plan Discharge Attending physician on discharge: Chivo Gould Discharging Clinician: Chivo Gould Anticipated Discharge Date/Time: 07/22/22 12:48 Patient Disposition: Home, Self-Care Activity: as tolerated Diet: heart healthy Discharge Instructions: Please avoid large gathering, wear face coverings in public and practice social distance. Please complete your Tamiflu course even if you are starting to feel well. Take precautions to avoid falls. Rise slowly from a lying or sitting position. Pause before standing or walking. Contact your doctor or call 911 and come to the Emergency Room if you have fevers or other worrisome symptoms. Follow-up with your primary care provider in 1-2 weeks. Please call for appointment. Thank you for using [facility] for your health care needs. Patient Instructions: Antibiotic Form Stand Alone Forms: General Discharge Information Follow-up/Referrals: Valentín Benedict MD [Primary C
[2022-07-22 17:20] LABS: Glucose Point of Care 100 mg/dl (65-105)
== END 2022-07-22 19:02 | disposition home or self-care (01) | DRG 189 ==
LOC: ANHED 18:09 → ANH3MEDSUR 07-20 00:11 → ANH3MED 07-20 15:49
PROVIDERS: Admitting Provider Internal Medicine; Emergency Provider Emergency Medicine; PCP Family Medicine; Visit Provider Internal Medicine
DX: J96.01 Acute respiratory failure with hypoxia (principal); J10.1 Influenza due to other identified influenza virus with other respiratory manifestations; Z20.822 Contact with and (suspected) exposure to COVID-19; J45.909 Unspecified asthma, uncomplicated; F41.9 Anxiety disorder, unspecified; G47.33 Obstructive sleep apnea (adult) (pediatric); F10.10 Alcohol abuse, uncomplicated; K76.0 Fatty (change of) liver, not elsewhere classified; F32.A Depression, unspecified; E03.9 Hypothyroidism, unspecified; Z90.710 Acquired absence of both cervix and uterus; Z87.891 Personal history of nicotine dependence
CPT/HCPCS: 36415; 71046; 71275; 80053; 82948; 85025; 85380; 86803; 87637; 93005; 93970; 94640; 96365; 96375; 99291; A9270; J0131; J1650; J2930; Q9967

== ENCOUNTER 2023-02-05 10:08 | Outpatient (CLI) | payer OTHER, SELFPAY ==
--- NOTE | ~2023-02-05 | MM_ITS ---
EXAMINATION: MM scrn tom implant BI w colten HISTORY: Screening mammogram TECHNIQUE: Craniocaudal and mediolateral oblique 3-D tomosynthesis images with implant displacement a nd synthetic 2-D images were generated. Craniocaudal and mediolateral oblique views of the breasts wi thout implant displacement were obtained using full field digital mammography. CAD analysis was submi tted and interpreted. COMPARISON: 10/12/2020, 11/17/2018, 05/07/2017 bilateral implant screening mammogram examinations BREAST PARENCHYMAL COMPOSITION: There are scattered areas of fibroglandular density. FINDINGS: Status post bilateral augmentation mammoplasty. There is no evidence of suspicious mass, ca lcification, or architectural distortion to suggest malignancy in either breast. There has been no montiel spicious interval change. IMPRESSION: 1. No mammographic evidence of malignancy. 2. Recommend routine screening mammography in one year. BI-RADS Category 1: Negative Reviewed, dictated and finalized at location A.
== END 2023-02-05 10:09 | disposition home or self-care (01) ==
PROVIDERS: PCP Family Medicine; Visit Provider Obstetrics & Gynecology
DX: Z12.31 Encounter for screening mammogram for malignant neoplasm of breast (principal)
CPT/HCPCS: 77063; 77067

== ENCOUNTER 2023-06-17 09:27 | Outpatient (CLI) | payer OTHER, SELFPAY ==
[2023-06-17 19:43] LABS: Hematocrit 40.3 % (37.0-47.0); Hemoglobin 13.4 g/dL (12.0-15.0); Mean Corpuscular HGB Conc 33.3 g/dl (32-36); Mean Corpuscular Hemoglobin 33.7 pg (26-34); Mean Corpuscular Volume 101.3 fl (80-100); Mean Platelet Volume 10.2 fl (7.4-10.4); Platelet Count Result 232 k/mm3 (150-375); Red Blood Count 3.98 M/mm3 (4.2-5.4); Red Cell Distribution Width 13.2 % (11.5-14.5); White Blood Count 4.5 K/mm3 (4.5-10.0)
[2023-06-17 20:30] LABS: Alanine Aminotransferase 15 U/L (6-35); Albumin Level 4.3 g/dL (3.5-5.1); Alkaline Phosphatase 61 U/L (38-126); Anion Gap 5 mmol/L (8-16); Aspartate Amino Transferase 36 U/L (14-36); Bilirubin,Total 0.6 mg/dL (0.2-1.3); Blood Urea Nitrogen 13 mg/dL (7-17); Calcium 9.4 mg/dL (8.4-10.2); Carbon Dioxide 27 mmol/L (22-30); Chloride 106 mmol/L (98-107); Cholesterol 267 mg/dL (0-200); Estimated Glomerular Filt Rate > 60; Glucose 100 mg/dL (65-110); HDL Direct 93 mg/dL; Potassium 4.3 mmol/L (3.4-5.0); Sodium 138 mmol/L (137-145); Triglycerides 226 mg/dL (<150)
[2023-06-17 20:41] LABS: LDL Cholesterol Direct 133 mg/dL
[2023-06-17 20:54] LABS: Hemoglobin A1C 4.6 % (<5.7)
== END 2023-06-17 09:28 | disposition home or self-care (01) ==
LOC: ANHBWCLAB 09:29
PROVIDERS: PCP Family Medicine; Visit Provider Family Medicine
DX: Z00.00 Encounter for general adult medical examination without abnormal findings (principal); R74.8 Abnormal levels of other serum enzymes; E03.9 Hypothyroidism, unspecified; E66.9 Obesity, unspecified; E78.5 Hyperlipidemia, unspecified; F10.10 Alcohol abuse, uncomplicated; F32.9 Major depressive disorder, single episode, unspecified; F41.9 Anxiety disorder, unspecified; G47.33 Obstructive sleep apnea (adult) (pediatric); J45.909 Unspecified asthma, uncomplicated; K76.0 Fatty (change of) liver, not elsewhere classified; Z13.21 Encounter for screening for nutritional disorder; Z87.891 Personal history of nicotine dependence
CPT/HCPCS: 36415; 80053; 80061; 82306; 83036; 84443; 85027

== ENCOUNTER 2023-10-21 10:11 | Outpatient (CLI) | payer OTHER, SELFPAY ==
--- NOTE | ~2023-10-21 | CT_ITS ---
CT Scan of the Chest without Contrast: Clinical Indication: Lung cancer screening, personal history of nicotine dependence Technique: Contiguous sections were acquired throughout the chest without intravenous contrast. Dose reduction technique was used on this scan by utilizing automated exposure control and iterative recon struction technique. The dose-length product (DLP) was 164.93 mGy-cm. COMPARISON: 07/19/2022 Findings: There is no evidence of any significant mediastinal, hilar or axillary lymphadenopathy. The mediastin al soft tissues appear normal. There is no evidence of pleural or pericardial effusion. The lungs are clear. No pulmonary nodules or infiltrates are noted. Images through the upper abdomen reveal no abnormalities. Impression: Lung RADS 1: Negative. 12 month follow-up screening CT advised. Reviewed, dictated and finalized at location . Impression: Lung RADS 1: Negative. 12 month follow-up screening CT advised.
== END 2023-10-21 10:12 ==
LOC: MICIMG 10:12
PROVIDERS: PCP Nurse Practitioner Family; Visit Provider Nurse Practitioner Family
DX: Z12.2 Encounter for screening for malignant neoplasm of respiratory organs (principal); Z87.891 Personal history of nicotine dependence
CPT/HCPCS: 71271

== ENCOUNTER 2023-12-23 10:40 | Outpatient (CLI) | payer OTHER, SELFPAY ==
[2023-12-23 19:12] LABS: Basophils Percent Auto 0.2 % (0.2-1.2); Eosinophils Absolute Auto 0.1 K/mm3 (0-0.3); Eosinophils Percent Auto 1.3 % (0-4.4); Hemoglobin 13.5 g/dL (12.0-15.0); Immature Granulocyte Absolute 0.01 K/mm3 (0.00-0.031); Immature Granulocyte Percent A 0.2 % (0-0.5); Lymphocytes Absolute Auto 1.22 K/mm3 (0.9-3.2); Lymphocytes Percent Auto 22.9 % (18.3-44.2); Mean Corpuscular HGB Conc 33.8 g/dl (32-36); Mean Corpuscular Hemoglobin 34.2 pg (26-34); Mean Corpuscular Volume 101.3 fl (80-100); Mean Platelet Volume 10.4 fl (7.4-10.4); Monocytes Absolute Auto 0.3 K/mm3 (0.1-0.6); Monocytes Percent Auto 5.1 % (2.6-8.5); Neutrophils Absolute Auto 3.7 K/mm3 (1.3-6.7); Neutrophils Percent Auto 70.3 % (45.5-73.1); Platelet Count Result 214 k/mm3 (150-375); Red Blood Count 3.95 M/mm3 (4.2-5.4); Red Cell Distribution Width 13.3 % (11.5-14.5); White Blood Count 5.3 K/mm3 (4.5-10.0)
[2023-12-23 19:27] LABS: Vitamin D 25 Hydroxy 43.2 ng/mL
[2023-12-23 19:51] LABS: Alanine Aminotransferase 12 U/L (6-35); Albumin Level 4.6 g/dL (3.5-5.1); Alkaline Phosphatase 68 U/L (38-126); Anion Gap 6 mmol/L (4-12); Aspartate Amino Transferase 22 U/L (14-36); Bilirubin,Total 0.8 mg/dL (0.2-1.3); Blood Urea Nitrogen 15 mg/dL (7-17); Calcium 9.3 mg/dL (8.4-10.2); Carbon Dioxide 27 mmol/L (22-30); Chloride 103 mmol/L (98-107); Estimated Glomerular Filt Rate > 60; Glucose 117 mg/dL (65-110); Potassium 3.9 mmol/L (3.4-5.0); Sodium 136 mmol/L (137-145)
== END 2023-12-23 10:41 | disposition home or self-care (01) ==
LOC: ANHBWCLAB 10:43
PROVIDERS: PCP Nurse Practitioner Family; Visit Provider Family Medicine
DX: E03.9 Hypothyroidism, unspecified (principal); F32.9 Major depressive disorder, single episode, unspecified; F41.9 Anxiety disorder, unspecified; G47.33 Obstructive sleep apnea (adult) (pediatric); J45.909 Unspecified asthma, uncomplicated; K76.0 Fatty (change of) liver, not elsewhere classified; R53.83 Other fatigue; R74.8 Abnormal levels of other serum enzymes
CPT/HCPCS: 36415; 80053; 82306; 84443; 85025

== ENCOUNTER 2024-06-30 10:18 | Outpatient (CLI) | payer OTHER, SELFPAY ==
[2024-06-30 18:40] LABS: Hematocrit 41.7 % (37.0-47.0); Mean Corpuscular HGB Conc 33.6 g/dl (32-36); Mean Corpuscular Hemoglobin 34.6 pg (26-34); Platelet Count Result 228 k/mm3 (150-375); Red Blood Count 4.05 M/mm3 (4.2-5.4); Red Cell Distribution Width 13.4 % (11.5-14.5); White Blood Count 6.1 K/mm3 (4.5-10.0)
[2024-06-30 19:18] LABS: LDL Cholesterol Direct 129 mg/dL
[2024-06-30 19:35] LABS: Alanine Aminotransferase 16 U/L (6-35); Albumin Level 4.2 g/dL (3.5-5.1); Alkaline Phosphatase 56 U/L (38-126); Anion Gap 4 mmol/L (4-12); Aspartate Amino Transferase 38 U/L (14-36); Bilirubin,Total 0.8 mg/dL (0.2-1.3); Blood Urea Nitrogen 20 mg/dL (7-17); Calcium 9.2 mg/dL (8.4-10.2); Carbon Dioxide 29 mmol/L (22-30); Chloride 104 mmol/L (98-107); Cholesterol 296 mg/dL (0-200); Estimated Glomerular Filt Rate > 60; Glucose 93 mg/dL (65-110); Potassium 4.4 mmol/L (3.4-5.0); Sodium 137 mmol/L (137-145); Triglycerides 293 mg/dL (<150)
[2024-06-30 20:29] LABS: Free T4 Free Thyroxine 1.15 ng/mL (0.78-2.19); Vitamin D 25 Hydroxy 38.1 ng/mL
[2024-06-30 20:51] LABS: HDL Direct 132 mg/dL
[2024-06-30 21:26] LABS: Hemoglobin A1C 4.7 % (<5.7)
== END 2024-06-30 10:19 | disposition home or self-care (01) ==
LOC: ANHBWCLAB 10:20
PROVIDERS: PCP Nurse Practitioner Family; Visit Provider Family Medicine
DX: E03.9 Hypothyroidism, unspecified (principal); F10.10 Alcohol abuse, uncomplicated; F32.9 Major depressive disorder, single episode, unspecified; G47.33 Obstructive sleep apnea (adult) (pediatric); K76.0 Fatty (change of) liver, not elsewhere classified; R74.8 Abnormal levels of other serum enzymes; Z00.00 Encounter for general adult medical examination without abnormal findings; E78.5 Hyperlipidemia, unspecified
CPT/HCPCS: 36415; 80053; 80061; 82306; 83036; 84439; 84443; 85027

== ENCOUNTER 2024-10-21 10:44 | Outpatient (CLI) | payer OTHER, SELFPAY ==
--- NOTE | ~2024-10-21 | CT_ITS ---
CT Scan of the Chest without Contrast: Clinical Indication: Lung cancer screening, nicotine dependence Technique: Contiguous sections were acquired throughout the chest without intravenous contrast. Dose reduction technique was used on this scan by utilizing automated exposure control and iterative recon struction technique. The dose-length product (DLP) was 167.84 mGy-cm. COMPARISON: 10/21/2023 Findings: There is no evidence of any significant mediastinal, hilar or axillary lymphadenopathy. The mediastin al soft tissues appear normal. There is no evidence of pleural or pericardial effusion. The lungs are clear. No pulmonary nodules or infiltrates are noted. Images through the upper abdomen reveal no abnormalities. Impression: Lung RADS 1: Negative. 12 month follow-up screening CT advised. Reviewed, dictated and finalized at location . Impression: Lung RADS 1: Negative. 12 month follow-up screening CT advised.
== END 2024-10-21 10:45 | disposition home or self-care (01) ==
LOC: MICIMG 10:44
PROVIDERS: PCP Family Medicine; Visit Provider Nurse Practitioner Family
DX: Z12.2 Encounter for screening for malignant neoplasm of respiratory organs (principal); Z87.891 Personal history of nicotine dependence
CPT/HCPCS: 71271

== ENCOUNTER 2025-02-01 08:57 | Outpatient (CLI) | payer OTHER, SELFPAY ==
[2025-02-01 18:51] LABS: Basophils Percent Auto 0.2 % (0.2-1.2); Eosinophils Absolute Auto 0.1 K/mm3 (0-0.3); Eosinophils Percent Auto 1.9 % (0-4.4); Hematocrit 43.8 % (37.0-47.0); Hemoglobin 14.8 g/dL (12.0-15.0); Immature Granulocyte Absolute 0.01 K/mm3 (0.00-0.031); Immature Granulocyte Percent A 0.2 % (0-0.5); Lymphocytes Absolute Auto 1.54 K/mm3 (0.9-3.2); Lymphocytes Percent Auto 29.7 % (18.3-44.2); Mean Corpuscular HGB Conc 33.8 g/dl (32-36); Mean Corpuscular Hemoglobin 34.1 pg (26-34); Mean Corpuscular Volume 100.9 fl (80-100); Mean Platelet Volume 10.1 fl (7.4-10.4); Monocytes Absolute Auto 0.3 K/mm3 (0.1-0.6); Monocytes Percent Auto 4.8 % (2.6-8.5); Neutrophils Absolute Auto 3.3 K/mm3 (1.3-6.7); Neutrophils Percent Auto 63.2 % (45.5-73.1); Platelet Count Result 246 k/mm3 (150-375); Red Blood Count 4.34 M/mm3 (4.2-5.4); Red Cell Distribution Width 13.6 % (11.5-14.5); White Blood Count 5.2 K/mm3 (4.5-10.0)
[2025-02-01 19:24] LABS: Alanine Aminotransferase 15 U/L (6-35); Albumin Level 4.4 g/dL (3.5-5.1); Alkaline Phosphatase 48 U/L (38-126); Anion Gap 7 mmol/L (4-12); Aspartate Amino Transferase 40 U/L (14-36); Bilirubin,Total 0.6 mg/dL (0.2-1.3); Blood Urea Nitrogen 16 mg/dL (7-17); Calcium 9.6 mg/dL (8.4-10.2); Carbon Dioxide 24 mmol/L (22-30); Chloride 106 mmol/L (98-107); Estimated Glomerular Filt Rate > 60; Glucose 96 mg/dL (65-110); Potassium 4.3 mmol/L (3.4-5.0); Sodium 137 mmol/L (137-145); Total Protein 7.3 g/dL (6.3-8.2)
[2025-02-01 19:44] LABS: Free T4 Free Thyroxine 1.12 ng/dL (0.78-2.19); Vitamin D 25 Hydroxy 43.3 ng/mL
[2025-02-06 13:58] LABS: Apolipoprotein B 131 mg/dL
== END 2025-02-01 08:58 | disposition home or self-care (01) ==
LOC: ANHBWCLAB 08:58
PROVIDERS: PCP Family Medicine; Visit Provider Family Medicine
DX: Z00.00 Encounter for general adult medical examination without abnormal findings (principal); E78.5 Hyperlipidemia, unspecified; E66.9 Obesity, unspecified; K76.0 Fatty (change of) liver, not elsewhere classified; J45.909 Unspecified asthma, uncomplicated; G47.33 Obstructive sleep apnea (adult) (pediatric); R53.83 Other fatigue
CPT/HCPCS: 36415; 80053; 82172; 82306; 82607; 84439; 84443; 85025

== ENCOUNTER 2025-06-08 09:27 | Outpatient (CLI) | payer OTHER, SELFPAY ==
--- NOTE | ~2025-06-08 | MM_ITS ---
EXAMINATION: MM scrn tom implant BI w colten HISTORY: Screening mammogram TECHNIQUE: Craniocaudal and mediolateral oblique 3-D tomosynthesis images with implant displacement and synthetic 2-D images were generated. Craniocaudal and mediolateral oblique views of the breasts without implant displacement were obtained using full field digital mammography. CAD analysis was submitted and interpreted. COMPARISON: Comparison to multiple prior studies sequentially, with oldest reviewed study dated 05/07/2017. BREAST PARENCHYMAL COMPOSITION: Not dense: There are scattered areas of fibroglandular density. FINDINGS: There is no evidence of suspicious mass, calcification, or architectural distortion to suggest malignancy in either breast. There has been no suspicious interval change. IMPRESSION: 1. No mammographic evidence of malignancy. 2. Recommend routine screening mammography in one year. BI-RADS Category 1: Negative Reviewed, dictated and finalized at location B.
== END 2025-06-08 09:28 | disposition home or self-care (01) ==
LOC: ANHFOHIMG 09:29
PROVIDERS: PCP Family Medicine; Visit Provider Obstetrics & Gynecology
DX: Z12.31 Encounter for screening mammogram for malignant neoplasm of breast (principal)
CPT/HCPCS: 77063; 77067